=== PATIENT | female | born 1965 | race Caucasian/White ===

== ENCOUNTER 2019-03-13 09:50 | Outpatient (CLI) | payer BC, SELFPAY ==
[2019-03-13 12:29] LABS: TSH (W/Ref FT4) 1.11 uIU/mL (0.36-3.74)
== END 2019-03-13 10:10 ==
PROVIDERS: Visit Provider Nurse Practitioner Family
DX: N95.0 Postmenopausal bleeding (principal)
CPT/HCPCS: 36415; 84443; 87086

== ENCOUNTER 2019-03-13 11:34 | Outpatient (REF) | payer BC, SELFPAY | END 2019-03-13 11:54 | LOC: LBN 11:34 | PROVIDERS: Visit Provider Nurse Practitioner Family | DX: R82.79 Other abnormal findings on microbiological examination of urine (principal) | CPT/HCPCS: 87086 ==

== ENCOUNTER 2019-03-17 00:32 | Outpatient (CLI) | payer BC, MEDICAID, SELFPAY ==
--- NOTE | 2019-03-17 09:34 | DI.US_ITS ---
SYMPTOM/DIAGNOSIS: POST MENOPAUSAL BLEEDING N95.0 PELVIC ULTRASOUND: 03/17 Pelvic ultrasound was performed transabdominally and transvaginally. Please see the accompanying data sheet for measurements of the pelvic structures. There appear to be two anterior uterine fibroids measuring about 26 mm and 22 mm in greatest diameter respectively. The endometrial stripe is homogeneous and about 3 mm in thickness. The right ovary is nonvisualized. The left ovary is unremarkable in appearance. No free fluid identified in the cul de sac. Limited scanning of the kidneys is unremarkable. CONCLUSION: Anterior uterine fibroids are noted. Right ovary nonvisualized. Otherwise unremarkable examination.
== END 2019-03-17 00:52 ==
PROVIDERS: Visit Provider Nurse Practitioner Family
DX: N95.0 Postmenopausal bleeding (principal); D25.9 Leiomyoma of uterus, unspecified
CPT/HCPCS: 76830; 76856

== ENCOUNTER 2019-03-18 15:54 | Outpatient (REF) | payer BC, SELFPAY ==
--- NOTE | 2019-03-18 15:25 | ENDOMET_PTH ---
PATIENT: Berenice Ramirez LOC: [facility] U#:[id number] AGE/SX: 53/F ROOM: RE03/18/[address]: Raheem Quan MD : 1965 BED: DIS: 03/18/2019 SPEC #: [id number] RECD: 03/18/19 17:16 STATUS: YULIANA REQ #: [id number] EVAN: 03/18/19 15:[address]: Raheem Quan DEPT: Surgical Specimen RECD BY: Elissa Sosa ENTERED: 03/18/19 17:16 SP TYPE: Endomet OTHR DR: None Tissues: 1 - ENDOMETRIUM BX/CURRETTE Procedures: GROSS AND MICRO LEVEL 4 Comments: [id number]
== END 2019-03-18 16:14 ==
LOC: LBN 15:54
PROVIDERS: Visit Provider Obstetrics & Gynecology
DX: N85.01 Benign endometrial hyperplasia (principal); N95.0 Postmenopausal bleeding
CPT/HCPCS: 88305

== ENCOUNTER 2020-03-27 07:07 | Emergency (ER) | payer BC, SELFPAY ==
[2020-03-27] VITALS (31 sets, daily range): BP systolic 97–131; BP diastolic 56–98; PULSE 63–91; RESP 12–24; TEMP 36.5–36.6; O2SAT 96–100
--- NOTE | 2020-03-27 07:00 | RT.EKG_ITS ---
APPROVED REPORT Exam: Resting ECG Patient Location: E HR:69 bpm ECG Measurements Heart Rate 69 AXIS RI 162 P 51 QRSd 84 QRS 18 QT 369 T 28 QTc 395 Conclusion Sinus rhythm...normal P axis, V-rate 60- 99 Multiform ventricular premature complexes...short R-R, variable morphology I have reviewed and interpreted ECG and agree with software generated interpretation.
--- NOTE | 2020-03-27 07:10 | ED.GENADUL_ITS ---
Discharge Plan Disposition Patient Disposition: AGAINST MEDICAL ADVICE Condition: Stable Discharge Details Clinical Impression: Chest pain Primary Care Provider: None,None ED Provider: Panchito Mayberry Home Meds and New Rx's Prescriptions: No Action No Known Home Meds RF: 0 Discharge Instructions Instructions: Chest Pain (ED) Additional Instructions: We have placed you on our follow up list to get established with a primary care provider as soon as possible If you have worsening pain, difficulty breathing or feel more ill return to the emergency department Discharge Data Discharge Date/Time-TO BE ENTERED AT DEPARTURE: 03/27/20 09:13 Medical Decision Making <Jose Alberto Claros MD - Last Filed: 03/27/20 20:07> Patient presents to ED with left-sided chest pain described as squeezing in nature. It varies in intensity but has not resolved in the last 4 hours. She has no risk factors for cardiac disease that she is aware of. Pain is not pleuritic nor does she have leg pain or leg swelling. EKG is sinus rhythm with PVCs present but no ST changes. IV established. Aspirin and nitroglycerin ordered. Laboratory studies and chest x-ray to be done. Revised Dunmore score places patient in low risk category. D-dimer ordered and if negative makes PE unlikely. Assuming normal troponin patient HEART score is also low suggesting safe discharge with close follow-up and outpatient stress testing if second troponin also normal. Patient care to be signed out to oncoming physician Dr. Mayberry. ECG Data Attestation: I personally reviewed and interpreted this ECG (s) as follows: Interpretation: See EKG <Panchito Mayberry MD - Last Filed: 03/27/20 09:04> pt's labs and xray unremarkable. She has no pain now and is hd stable, heart score is 3. I recommended she have a delta troponin and if this is negative can be d/c'd and f/u with a pcp. She declines to stay. She has the capacity to make her own decisions and understands risks of leaving including and permanent disability and is willing to accept these risks. She understands she can always return if she changes her mind and will also return if new or worsening symptoms. Will place on f/u list to get established with a pcp as well as she doesn't have one Imaging Data Radiologic Study: Attestation: I personally reviewed and interpreted this imaging study as follows: Imaging: X-Ray Radiologist's impression: no acute findings Lab Data Lab results reviewed: Yes I reviewed the patient's lab results. HPI <Jose Alberto Claros MD - Last Filed: 03/27/20 20:07> General Mode of arrival: ambulatory . Date/Time Provider Initiated Documentation: 03/27/20 07:09 . Limitations to Documentation: no limitations . Information obtained by: patient and RN notes reviewed . HPI Narrative: Patient presents with left upper chest pain for the last 4 hours. Pain does not radiate anywhere. There are no associated symptoms. Describes the pain as squeezing and changes in intensity but has never completely gone away since it started this morning. She had similar episode 2 mornings ago. After about 45 minutes the pain did resolve. Does not seem to be associated with exertion. She denies leg pain or leg swelling. She denies fever or cough. She has no cardiac risk factors, but admits that she has not seen a physician in over 3 or 4 years. Since pain did not resolve this morning she elected to come to ED for evaluation. Related Data Home Medications Medication Instructions Recorded Confirmed Unknown [No Known Home Meds] 07/16/18 03/27/20 Allergies Allergy/AdvReac Type Severity Reaction Status Date / Time Penicillins Allergy Intermediate Hives Verified 03/27/20 07:16 Review of Systems <Jose Alberto Claros MD - Last Filed: 03/27/20 20:07> Narrative: 04/21 Review of Systems completed and is negative except as stated above in HPI (Systems reviewed: Const, Eyes, ENT, Resp, CV, GI, , MSK, Skin, Neuro) PFSH <Jose Alberto Claros MD - Last Filed: 03/27/20 20:07> Medical History Fibroid uterus Surgical History section at time of C/S Colonoscopy - IV Sedation (08/25/16) Ligation of fallopian tube Myomectomy Family History Mother Osteoporosis Other Heart disease Social History Smoking/Tobacco Use Status: Never Alcohol Intake: never Drug use: Never Substance use type: does not use current occupation: [employer] Home History History 3 Para 3 Hx # Term Pregnancies Multiple births Hx # Pregnancies Ectopic pregnancies AB induced Hx Number of Living Children AB spontaneous Exam <Jose Alberto Claros MD - Last Filed: 03/27/20 20:07> Narrative Exam Narrative: Vitals: Afebrile with normal vitals and room air pulse ox. Const: WDWN female in NAD. HEENT: NC/AT. Normal facial exam. Eyes: Normal conjunctiva and sclera. Neck: Supple. Trachea midline. Lungs: Normal respiratory effort. Lungs are clear. Cor: RRR without murmur/gallop. Good radial pulses. GI: Soft. NT/ND. No guarding or rebound. Neuro: A+O x 3. Normal speech, mentation, gait. Cranial nerves II - XII grossly intact. No gross motor or sensory deficit. Ext: No C/C/E. No calf tenderness. Skin: Warm and dry without rash. Sign Out <Jose Alberto Claros MD - Last Filed: 03/27/20 20:07> Sign Out Data: Sign Out Comment: pending labs, CXR and disposition Last updated by Jose Alberto Claros MD at 03/27/20 07:47
--- NOTE | 2020-03-27 07:15 | DI.RAD_ITS ---
EXAM: XR CHEST 2V PA LATERAL CLINICAL HISTORY: CP TECHNIQUE: 2D digital imaging was performed. COMPARISON: No exams were available for comparison FINDINGS: MEDIASTINUM: Normal. HEART: Normal. PULMONARY VASCULATURE: Normal. LUNGS: Clear. PLEURAL SPACE: No pleural effusion or pneumothorax. BONE:Within normal limits for the patient's age. OTHER FINDINGS:Normal. IMPRESSION: No acute pulmonary findings. DATA REPOSITORY: RADIATION DOSE DELIVERED:
[2020-03-27] MEDS: Aspirin 81 MG CHEW 324 MG CH (07:35)
[2020-03-27] MEDS: nitroGLYcerin 0.4 MG TAB SL (07:37)
[2020-03-27 07:41] LABS: Abs Immature Grans 0.02 10^3/uL (0.0-0.06); Absolute Basophil Count 0.02 10^3/uL (0.0-0.2); Absolute Eosinophil Count 0.09 10^3/uL (0.0-0.7); Absolute Lymphocyte Count 1.72 10^3/uL (1.2-3.4); Basophils % 0.3; Eosinophils % 1.5; HCT 40.5 % (36.0-46.0); HGB 12.8 g/dL (11.2-15.7); Immature Grans % 0.3; Lymphocytes % 28.4; MCH 27.4 pg (27.0-33.0); MCHC 31.6 % (32.0-36.0); MCV 86.7 fL (80-95); MPV 9.2 fL (8.0-11.0); Monocytes % 8.3; Neutrophils % 61.2; Nucleated RBC 0 %; Platelet Count 248 10^3/uL (130-400); RBC 4.67 10^6/uL (3.93-5.22); RDW 12.4 % (11.7-14.6); RDW-SD 39.2 fL; WBC 6.05 10^3/uL (4.4-10.8)
--- NOTE | 2020-03-27 08:00 | DI.VRAD_ITS ---
PROCEDURE INFORMATION: Exam: XR Chest, 2 Views Exam date and time: 03/27/2020 7:28 AM Age: 54 years old Clinical indication: Chest pain; Type not specified TECHNIQUE: Imaging protocol: XR of the chest Views: 2 views. COMPARISON: No relevant prior studies available. FINDINGS: Lungs: Unremarkable. No consolidation. Pleural space: Unremarkable. No pleural effusion. No pneumothorax. Heart/Mediastinum: Unremarkable. No cardiomegaly. Bones/joints: Unremarkable. IMPRESSION: No acute findings. Dictated and Authenticated by: Pranav Jennings MD. Ordering:STONE Abrams MD
[2020-03-27 08:21] LABS: D-Dimer 410 ng/mlFEU (<500)
[2020-03-27 08:48] LABS: ALT 32 U/L (14-59); AST 22 U/L (15-37); Albumin 3.7 g/dL (3.4-5.0); Alkaline Phosphatase 82 U/L (46-116); Anion Gap 7.4 mmol/L (3-11); BUN 15 mg/dL (7-18); Bilirubin, Total 0.4 mg/dL (0.2-1.0); CO2 29.6 mmol/L (21.0-32.0); CREATININE 0.82 mg/dL (0.55-1.02); Calcium 9.5 mg/dL (8.5-10.1); Chloride 105 mmol/L (98-107); Glucose 123 mg/dL (74-106); Potassium 4.4 mmol/L (3.5-5.1); Sodium 142 mmol/L (136-145); Total Protein 7.9 g/dL (6.4-8.2)
[2020-03-27 08:49] LABS: Troponin I < 0.05 ng/mL (<0.06)
--- NOTE | 2020-04-02 16:10 | PDOC.ERCMPRO ---
- If Service Date Differs Date of service: 04/02/20 Time of Service: 16:10 Care Management Progress Note At the request of ED provider, BERNICE coordinates referral to Ivonne Sanchez MD, on-call provider, of [facility], to assist Berenice in obtaining a follow-up appointment and in establishing care with a PCP. Berenice was seen in the ED for chest pain. She has [employer] for insurance.
== END 2020-03-27 09:13 | disposition left against medical advice (07) ==
PROVIDERS: Emergency Medicine; Emergency Provider Emergency Medicine
DX: R07.9 Chest pain, unspecified (principal)
CPT/HCPCS: 36415; 80053; 93005; 99285; 71046; 83735; 84484; 85025; 85379; 93010; 99284

== ENCOUNTER 2020-06-29 00:44 | Outpatient (CLI) | payer BC, SELFPAY ==
--- OUTSIDE RECORDS SUMMARY | 2020-06-29 00:46 | XMS_ITS ---
:1965 Author Care Team Providers Name Role Phone Angel Ramos Primary Care Provider Unavailable Allergies Code Code System Name Reaction Severity Status Onset Penicillins Anaphylaxis ? Active ? ? Hives ? Active ? Medications Name Status Start Date Stop Date ? ? Aleve 220 mg capsule Active ? Not availab le Take 2 capsules every day by oral route as needed. Bactrim DS 800 mg-160 mg tablet Completed 07/06/2006 07/21/2006 1 (one) Tablet: BID Benadryl 25 mg capsule Completed 12/30/2007 8 1 (one) Cap: every 6 hours as needed for eye swelling hydrocodone 5 mg-acetaminophen 325 mg tablet Completed 05/04/2017 1-2 Tablet: Every 4 to 6 hours as needed Levaquin 500 mg tablet Completed 01/21/2007 7 1 (one) Tablet: Daily lorazepam 0.5 mg tablet Completed 12/16/2007 12/16/19 08 1 (one) Tablet: at bedtime Macrobid 100 mg capsule Completed 01/20/2008 01/25/20 08 1 Cap: Twice daily Naprosyn 500 mg tablet Completed 04/05/2012 7 1 Tablet: bid - twice daily omeprazole 20 mg capsule,delayed release Active ? Not available 1 (one) Cap DR: Daily for 30 days paroxetine 10 mg tablet Completed 10/14/2007 10/14/19 08 1 (one) Tablet: Daily Tylenol 500 mg capsule Active ? Not avail able Take 2 tablets every 4 hours by oral route as needed. Zithromax TRI-JEFFRY 500 mg Completed 01/11/2007 007 tablet Zithromax Z-Jeffry 250 mg tablet Completed 06/19/2006 1 (one) Tablet: 2 now then 1 daily until gone Problems Name Status Onset Date Source ? Gastroesophageal Reflux Disease Active 02/25/2018 ? Neck Pain Active 02/25/2018 ? Thoracic Back Pain Active 02/25/2018 ? Muscle Pain Active 02/25/2018 ? Paresthesia Active 02/25/2018 ? Hyperglycemia Active 02/25/2018 ? Generalized Anxiety Disorder Active ? His tory Depressive Disorder Active ? History Wrist Joint Pain Active ? History Asthenia Active ? History Tingling of Skin Active ? History Dysuria Active ? History Adult Health Examination Active ? History Specialized Medical Examination Active ? History Finding of Esophagus Unknown ? History Procedure by Method Unknown ? History SNOMED CT Concept Unknown ? History Procedures Date Name Performed by ? ? Tubal Ligation Information not syeda blackman Notes: 1997 ? Delivery Information not syeda blackman Notes: 199702/25/2018 XR, Thoracic Spine, 3 View [facility] Radiology (Internal) [address], [place] [id number] (Work Place) 02/25/2018 XR, Cervical Spine, 4 or 5 View [facility] Radiology (Internal) [address] [place] [id number] (Work Place) 02/25/2018 XR, Wrist, 3 or More View [facility] Radiology (Internal) [address] [place] [id number] (Work Place) Results Lab Results Date Name Specimen Result Interpretation Description Value Range Status Address ? 02/26/2018 Venipuncture ? Location Left ? ? P_nc Primary [place]tecubital [place]: [address] [place], [place] ? ? ? Needle 21g ? ? P_nc Prim latia Vacutainer Care [place]: [address] [place], [place] ? ? ? Number of 1 ? ? P_nc P rimary Attempts Care [place]: [address] [place], [place] ? ? ? Successful Yes ? ? P_nc Primary [place]: [address] [place], [place] ? ? ? Dressing Pressure ? ? P_nc Primary Band-aid Care Applied [place]: [address] [place], [place] ? ? ? Initials rs ? ? P_nc Pr imary Care [place]: [address] [place], [place] 02/25/2018 CBC W/ Auto BLD - Wbc 8.6 10*3/uL 5.0-1 Fin al [place] Diff 0.0 Hospital L ab 10*3/ (Internal) : [address] [place] ? ? BLD - Rbc 4.53 10*6/uL 4.10- Final [facility] 5.30 Hospital L ab 10*6/ (Internal) : [address] ? ? BLD - Hgb 12.6 g/dL 12.0- Final [place] 16.0 Hospital L ab g/dL (Internal) : [address] ? ? BLD - Hct 38.8 % 37.0- Final [facility] 47.0 Hospital L ab % (Internal) : [address] ? ? BLD - Mcv 85.7 fL 80.0- Final [facility] 96.0 Hospital L ab fL (Internal) : [address] ? ? BLD - Mch 27.8 pg 26.0- Final [place] [facility] 32.0 Hospital L ab pg (Internal) : [address] ? ? BLD - Mchc 32.5 g/dL 31.0- Final [facility] 35.0 Hospital L ab g/dL (Internal) : [address] ? ? BLD - Rdw 12.6 % 11.5- Final [facility] 14.5 Hospital L ab % (Internal) : [address] ? ? BLD - Plt 261 10*3/uL 130-4 Final [place] [facility] 50 Hospital L ab 10*3/ (Internal) : [address] ? ? BLD - Anc 5.44 10*3/uL ? Final [facility] Hospital L ab (Internal) : [address] ? ? BLD - Neutro 63.2 % 40.0- [facility] 75.0 Hospital L ab % (Internal) : [address] [place] ? ? BLD - Lymph 27.5 % 20.0- Final [facility] 50.0 Hospital L ab % (Internal) : [address] ? ? BLD - [place] 7.4 % 2.0-1 Final [facility] 0.0 % Hospital L ab (Internal) : [address] [place] ? ? BLD - Eos 1.3 % 1.0-6 Final [place] [facility] .0 % Hospital L ab (Internal) : [address] ? ? BLD - Baso 0.5 % 0.0-1 Final [place] [facility] .0 % Hospital L ab (Internal) : [address] ? ? BLD - Ig 0.1 % 0.0-0 Final [place] [facility] .9 % Hospital L ab (Internal) : [address] 02/25/2018 HbA1C BLD - Ha1C 5.6 % 4.0-6 Final [facility] (Hemoglobin .0 % Hospi james Lab a1C), Blood (Inte rnal): [address] [place] 02/25/2018 CMP, Serum or S - g/r 92 mg/dL 74-10 Jaci l [facility] Plasma 6 Hospital L ab mg/dL (Internal) : [address] [place] ? ? S High Bun 24 mg/dL 7-17 Final [facility] untry mg/dL Hospital L ab (Internal) : [address] [place] ? ? S - Crea 0.70 mg/dL 0.52- [facility] 1.04 Hospital L ab mg/dL (Internal) : [address] [place] ? ? S - Ca 9.8 mg/dL 8.4-1 Final [facility] 0.2 Hospital L ab mg/dL (Internal) : [address] [place] ? ? S - Na 138 mmol/L 137-1 Final [facility] 45 Hospital L ab mmol/ (Internal) : [address] [place] ? ? S - K 4.3 mmol/L 3.5-5 Final [facility] .1 Hospital L ab mmol/ (Internal) : [address] [place] ? ? S - Cl 100 mmol/L 98-10 Final [facility] 7 Hospital L ab mmol/ (Internal) : [address] [place] ? ? S - Tco2 30.0 mmol/L 22.0- [facility] 30.0 Hospital L ab mmol/ (Internal) : [address] [place] ? ? S High Tp 8.7 g/dL 6.3-8 Final [facility] untry .2 Hospital L ab g/dL (Internal) : [address] [place] ? ? S - Alb 4.6 g/dL 3.5-5 Final [place] [facility] .0 Hospital L ab g/dL (Internal) : [address] [place] ? ? S - Tbil 0.4 mg/dL 0.2-1 Final [facility] .3 Hospital L ab mg/dL (Internal) : [address] [place] ? ? S - Alp 72 U/L 50-13 Final [facility] try 6 U/L Hospital L ab (Internal) : [address] [place] ? ? S - Alt (Sgpt) 29 U/L 9-52 Final [facility] U/L Hospital L ab (Internal) : [address] ? ? S - Ast (Sgot) 29 U/L 14-36 Final [facility] U/L Hospital L ab (Internal) : [address] [place] 02/25/2018 Rf BLD - Rf negative < negat [facility] (Rheumatoid 10 [IU]/mL ayleen < H ospital Lab Factor), 10 (Interna l): 189 Serum [IU]/ [address], mL [place] 02/25/2018 TSH, Serum or S - Tsh 1.82 0.47- Final [facility] Plasma u[IU]/mL 4.68 Hospital Lab u[IU] (Internal) : 189 /mL [address] 02/25/2018 Borrelia S - Lyme negative ? Final [facility] [place]i Antibody Hos pital Lab Ab, Qual (Interna l): 189 Immunoassay, Prou ty , Serum [place] 02/25/2018 MADELEINE S - MADELEINE negative negat [facility] (Antinuclear Interpretatio Hospital Lab Antibodies) n (Inte rnal): 189 Screen, [address] , Serum [place] 11/05/2017 BMP, Serum or S ? g/r 91 mg/dL 74-10 Jaci l [facility] Plasma 6 Hospital L ab mg/dL (Internal) : [address] ? ? S ? Bun 9 mg/dL 7-17 Final [facility] ntry mg/dL Hospital L ab (Internal) : [address] ? ? S ? Crea 0.70 mg/dL 0.52- Final [facility] 1.04 Hospital L ab mg/dL (Internal) : [address] [place] ? ? S ? Ca 9.7 mg/dL 8.4-1 Final [facility]unt[facility] 0.2 Hospital L ab mg/dL (Internal) : [address] ? ? S ? Na 141 mmol/L 137-1 Final [facility] 45 Hospital L ab mmol/ (Internal) : [address] ? ? S ? K 4.3 mmol/L 3.5-5 Final [facility] .1 Hospital L ab mmol/ (Internal) : [address] ? ? S ? Cl 102 mmol/L 98-10 Final [facility] 7 Hospital L ab mmol/ (Internal) : [address] ? ? S ? Tco2 30.0 mmol/L 22.0- Final [facility] 30.0 Hospital L ab mmol/ (Internal) : [address] [place] 11/05/2017 CBC W/ Auto BLD ? Wbc 6.5 10*3/uL 5.0-1 Fin al [place] Diff 0.0 Hospital L ab 10*3/ (Internal) : [address] ? ? BLD ? Rbc 4.59 10*6/uL 4.10- Final [facility] 5.30 Hospital L ab 10*6/ (Internal) : [address] ? ? BLD ? Hgb 13.1 g/dL 12.0- Final [facility] 16.0 Hospital L ab g/dL (Internal) : [address] ? ? BLD ? Hct 39.7 % 37.0- Final [place] [facility] 47.0 Hospital L ab % (Internal) : [address] ? ? BLD ? Mcv 86.5 fL 80.0- Final [facility] ntry 96.0 Hospital L ab fL (Internal) : [address] ? ? BLD ? Mch 28.5 pg 26.0- Final [facility] ntry 32.0 Hospital L ab pg (Internal) : [address] ? ? BLD ? Mchc 33.0 g/dL 31.0- Final [facility] 35.0 Hospital L ab g/dL (Internal) : [address] ? ? BLD ? Rdw 12.5 % 11.5- Final [facility] 14.5 Hospital L ab % (Internal) : [address] ? ? BLD ? Plt 223 10*3/uL 130-4 Final [facility] 50 Hospital L ab 10*3/ (Internal) : [address] ? ? BLD ? Anc 4.01 10*3/uL ? Final [facility] Hospital L ab (Internal) : [address] ? ? BLD ? Neutro 61.4 % 40.0- Final [place] [facility] 75.0 Hospital L ab % (Internal) : [address] ? ? BLD ? Lymph 28.7 % 20.0- Final [place] [facility] 50.0 Hospital L ab % (Internal) : [address] ? ? BLD ? [place] 8.0 % 2.0-1 Final [facility] 0.0 % Hospital L ab (Internal) : [address] ? ? BLD ? Eos 1.2 % 1.0-6 Final [facility] .0 % Hospital L ab (Internal) : [address] ? ? BLD ? Baso 0.5 % 0.0-1 Final [facility] .0 % Hospital L ab (Internal) : [address] ? ? BLD ? Ig 0.2 % 0.0-0 Final [facility] .9 % Hospital L ab (Internal) : [address] 11/05/2017 Urinalysis, UR ? UA-color yellow pale Final [facility] Dipstick, yello Hospita l Lab Reflex Micro w (Int ernal): [address] ? ? UR ? UA-appear clear clear Final [facility] Hospital L ab (Internal) : [address] ? ? UR ? UA-spec Grav <=1.005 1.003 Final [place] -1.03 Hospital L ab 5 (Internal) : [address] ? ? UR ? UA-pH 6.0 [pH] 4.6-8 Final [place] [facility] .0 Hospital L ab [pH] (Internal) : [address] ? ? UR ? UA-leuk Est negative negat Final No [facility] ab (Internal) : [address] ? ? UR ? UA-nitrite negative negat Final [facility] ab (Internal) : [address] ? ? UR ? UA-prot negative negat Final [facility] (Internal) : [address] ? ? UR ? UA-gluc negative negat Final [facility] (Internal) : [address] ? ? UR ? UA-ketone negative negat Final [facility] (Internal) : [address] ? ? UR ? UA-urobil normal francois Final [facility] (Internal) : [address] ? ? UR ? UA-bili negative negat Final [facility] (Internal) : [address] ? ? UR ? UA-blood negative negat Final [facility] (Internal) : [address] 07/20/2017 Neutrophil BLD ? Anc-manual 7.70 10*3/uL ? Final [facility] Count, [facility] Absolute (Interna l): 189 (Anc), Blood Prou ty [place] 07/20/2017 Differential, BLD ? Polys 74 % 40-75 Final [facility] Manual, Blood % Hos pital Lab (Internal) : [address] ? ? BLD ? Bands 0 % 0-5 % Final [facility] (Internal) : [address] ? ? BLD Low Lymphs 18 % 20-50 [facility] (Internal) : [address] ? ? BLD ? [place] 5 % 2-10 Final [facility] (Internal) : [address] ? ? BLD ? Eos 2 % 0-6 % Final [facility] (Internal) : [address] ? ? BLD ? Baso 1 % 0-1 % Final [facility] (Internal) : [address] ? ? BLD ? Atyp Lymph 0 % ? Final [facility] Hospital L ab (Internal) : [address] ? ? BLD ? Plts, Est. adequate adequ Final [facility] ate Hospital L ab (Internal) : [address] ? ? BLD ? RBC normal francois Final [place] [facility] Morphology l Hospit al Lab (Internal) : [address] 07/20/2017 CBC W/ Auto BLD High Wbc 10.4 10*3/uL 5.0-1 Fi nal [facility] Diff 0.0 Hospital L ab 10*3/ (Internal) : [address] ? ? BLD ? Rbc 4.43 10*6/uL 4.10- Final [facility] Country 5.30 Hospital L ab 10*6/ (Internal) : [address] ? ? BLD ? Hgb 12.6 g/dL 12.0- Final [facility] ountry 16.0 Hospital L ab g/dL (Internal) : [address] ? ? BLD ? Hct 38.5 % 37.0- Final [place] [facility] 47.0 Hospital L ab % (Internal) : [address] ? ? BLD ? Mcv 86.9 fL 80.0- Final [facility] ntry 96.0 Hospital L ab fL (Internal) : [address] ? ? BLD ? Mch 28.4 pg 26.0- Final [facility] ntry 32.0 Hospital L ab pg (Internal) : [address] [place] ? ? BLD ? Mchc 32.7 g/dL 31.0- Final [facility]unt[facility] 35.0 Hospital L ab g/dL (Internal) : [address] ? ? BLD ? Rdw 12.6 % 11.5- Final [place] [facility] 14.5 Hospital L ab % (Internal) : [address] ? ? BLD ? Plt 293 10*3/uL 130-4 Final [facility] 50 Hospital L ab 10*3/ (Internal) : [address] 07/20/2017 CMP, Serum or S High g/r 112 mg/dL 74-10 Fin al [facility] Plasma 6 Hospital L ab mg/dL (Internal) : [address] ? ? S ? Bun 17 mg/dL 7-17 Final [facility] untry mg/dL Hospital L ab (Internal) : [address] ? ? S ? Crea 0.70 mg/dL 0.52- Final [facility] 1.04 Hospital L ab mg/dL (Internal) : [address] ? ? S ? Ca 9.3 mg/dL 8.4-1 Final [facility] ountry 0.2 Hospital L ab mg/dL (Internal) : [address] ? ? S Low Na 136 mmol/L 137-1 Final [facility] 45 Hospital L ab mmol/ (Internal) : [address] ? ? S ? K 4.1 mmol/L 3.5-5 Final [facility] .1 Hospital L ab mmol/ (Internal) : [address] ? ? S ? Cl 100 mmol/L 98-10 Final [facility] 7 Hospital L ab mmol/ (Internal) : [address] ? ? S ? Tco2 29.0 mmol/L 22.0- Final [facility] 30.0 Hospital L ab mmol/ (Internal) : [address] ? ? S ? Tp 7.7 g/dL 6.3-8 Final [facility] untry .2 Hospital L ab g/dL (Internal) : [address] ? ? S ? Alb 4.1 g/dL 3.5-5 Final [facility] untry .0 Hospital L ab g/dL (Internal) : [address] ? ? S ? Tbil 0.3 mg/dL 0.2-1 Final [facility] .3 Hospital L ab mg/dL (Internal) : [address] ? ? S ? Alp 72 U/L 50-13 Final [facility] try 6 U/L Hospital L ab (Internal) : [address] ? ? S ? Alt (Sgpt) 27 U/L 9-52 Final [facility] U/L Hospital L ab (Internal) : [address] ? ? S ? Ast (Sgot) 29 U/L 14-36 [facility] U/L Hospital L ab (Internal) : [address] 05/04/2017 CBC W/ Auto BLD High Wbc 10.1 10*3/uL 5.0-1 Fi nal [place] Diff 0.0 Hospital L ab 10*3/ (Internal) : [address] [place] ? ? BLD ? Rbc 4.24 10*6/uL 4.10- Final [facility] 5.30 Hospital L ab 10*6/ (Internal) : [address] ? ? BLD ? Hgb 12.1 g/dL 12.0- Final [facility]untry 16.0 Hospital L ab g/dL (Internal) : [address] ? ? BLD Low Hct 36.7 % 37.0- Final [place] [facility] 47.0 Hospital L ab % (Internal) : [address] ? ? BLD ? Mcv 86.6 fL 80.0- Final [facility] ntry 96.0 Hospital L ab fL (Internal) : [address] ? ? BLD ? Mch 28.5 pg 26.0- Final [facility] ntry 32.0 Hospital L ab pg (Internal) : [address] ? ? BLD ? Mchc 33.0 g/dL 31.0- Final [facility] 35.0 Hospital L ab g/dL (Internal) : [address] ? ? BLD ? Rdw 12.9 % 11.5- Final [facility] 14.5 Hospital L ab % (Internal) : [address] ? ? BLD ? Plt 254 10*3/uL 130-4 Final [place] [facility] 50 Hospital L ab 10*3/ (Internal) : [address] ? ? BLD ? Anc 6.59 10*3/uL ? Final [facility] Hospital L ab (Internal) : [address] ? ? BLD ? Neutro 65.5 % 40.0- Final [facility] ntry 75.0 Hospital L ab % (Internal) : [address] ? ? BLD ? Lymph 23.0 % 20.0- Final [place] [facility] 50.0 Hospital L ab % (Internal) : [address] ? ? BLD ? [place] 9.3 % 2.0-1 Final [facility] 0.0 % Hospital L ab (Internal) : [address] ? ? BLD ? Eos 1.5 % 1.0-6 Final [facility] .0 % Hospital L ab (Internal) : [address] ? ? BLD ? Baso 0.5 % 0.0-1 Final [facility] .0 % Hospital L ab (Internal) : [address] ? ? BLD ? Ig 0.2 % 0.0-0 Final [facility] .9 % Hospital L ab (Internal) : [address] 05/04/2017 CMP, Serum or S ? g/r 89 mg/dL 74-10 Jaci l [facility] Plasma 6 Hospital L ab mg/dL (Internal) : [address] ? ? S High Bun 22 mg/dL 7-17 Final [facility] untry mg/dL Hospital L ab (Internal) : [address] ? ? S ? Crea 0.60 mg/dL 0.52- Final [facility] 1.04 Hospital L ab mg/dL (Internal) : [address] ? ? S ? Ca 9.2 mg/dL 8.4-1 Final [facility] ountry 0.2 Hospital L ab mg/dL (Internal) : [address] ? ? S Low Na 135 mmol/L 137-1 Final [facility] 45 Hospital L ab mmol/ (Internal) : [address] ? ? S ? K 3.7 mmol/L 3.5-5 Final [facility] .1 Hospital L ab mmol/ (Internal) : [address] ? ? S ? Cl 98 mmol/L 98-10 Final [facility] 7 Hospital L ab mmol/ (Internal) : [address] ? ? S ? Tco2 27.0 mmol/L 22.0- Final [facility] 30.0 Hospital L ab mmol/ (Internal) : [address] ? ? S ? Tp 7.6 g/dL 6.3-8 Final [facility] untry .2 Hospital L ab g/dL (Internal) : [address] ? ? S ? Alb 4.2 g/dL 3.5-5 Final [place] [facility] .0 Hospital L ab g/dL (Internal) : [address] ? ? S ? Tbil 0.4 mg/dL 0.2-1 Final [facility] .3 Hospital L ab mg/dL (Internal) : [address] ? ? S ? Alp 62 U/L 50-13 Final [facility] try 6 U/L Hospital L ab (Internal) : [address] ? ? S ? Alt (Sgpt) 37 U/L 9-52 Final [facility] U/L Hospital L ab (Internal) : [address] ? ? S ? Ast (Sgot) 24 U/L 14-36 Final [facility] U/L Hospital L ab (Internal) : [address] 05/04/2017 TSH, Serum or S ? Tsh 1.60 0.47- Final [facility] Plasma u[IU]/mL 4.68 Hospital Lab u[IU] (Internal) : 189 /mL [address] Past Encounters 06/20/2019 Gastroesophageal Reflux Disease Elzbieta Ramos, [employer] SALES CONSULTANT: [address] [place] [id number], Ph. Social History Tobacco Smoking Status Never Smoker Vaccine List Vaccine Type influenza, seasonal, injectable 05/15/2007 rubella Td (adult), adsorbed 07/09/1994 Tdap 05/15/2007 Plan of Care Reminders Provider Appointments None ? ? recorded. Lab None ? ? recorded. Referral None ? ? recorded. Procedures None ? ? recorded. Surgeries None ? ? recorded. Imaging None ? ? recorded. Vitals 06/20/2019 04:00PM Acute 20 Weight Blood Pressure 73.48 kg 118/74 mm[Hg] 02/25/2018 03:20PM Acute 30 Height Weight BMI Blood Pressure 154.94 cm 71.21 kg 29.7 kg/m2 108/58 mm[Hg] 09/06/2017 Height Weight Blood Pressure 154.94 cm 72.57 kg 120/74 mm[Hg] 07/20/2017 Height Weight Blood Pressure 154.94 cm 70.31 kg 114/70 mm[Hg] 05/04/2017 Weight Blood Pressure 71.21 kg 128/70 mm[Hg] 09/10/2008 Weight Blood Pressure 58.97 kg 108/56 mm[Hg] 08/20/2008 Height Weight Blood Pressure 154.94 cm 57.61 kg 98/54 mm[Hg] 06/09/2008 Height Weight Blood Pressure 154.94 cm 59.65 kg 100/58 mm[Hg] 12/16/2007 Weight Blood Pressure 59.87 kg 86/50 mm[Hg] 10/14/2007 Weight Blood Pressure 59.87 kg 96/56 mm[Hg] 09/04/2007 Weight Blood Pressure 59.87 kg 92/60 mm[Hg] 08/01/2007 Height Weight Blood Pressure 154.94 cm 58.97 kg 94/60 mm[Hg] 05/15/2007 Height Weight Blood Pressure 154.94 cm 57.61 kg 110/64 mm[Hg] 02/05/2007 Weight Blood Pressure 56.25 kg 104/60 mm[Hg] 01/21/2007 Weight Blood Pressure 58.06 kg 108/60 mm[Hg] 01/08/2007 Weight Blood Pressure 59.87 kg 88/60 mm[Hg] 12/27/2006 Blood Pressure 98/56 mm[Hg] 12/17/2006 Weight Blood Pressure 59.87 kg 90/60 mm[Hg] 07/06/2006 Weight Blood Pressure 60.78 kg 110/70 mm[Hg] 06/19/2006 Weight Blood Pressure 60.33 kg 100/64 mm[Hg] 05/02/2006 Height Weight Blood Pressure 154.94 cm 60.33 kg 110/70 mm[Hg] 03/16/2006 Blood Pressure 100/68 mm[Hg] 03/08/2006 Weight Blood Pressure 60.33 kg 114/72 mm[Hg] 05/02/2005 Height Weight Blood Pressure 154.94 cm 58.97 kg 104/60 mm[Hg] 12/20/2004 Weight Blood Pressure 58.51 kg 96/60 mm[Hg]
--- NOTE | 2020-06-29 13:20 | DI.MAMMO_ITS ---
EXAM: MG MAMMO SCREENING CLINICAL HISTORY: screening,Z12.39 TECHNIQUE: Bilateral full field digital CC and MLO mammographic images were obtained with 3D tomosyn thesis and utilizing computer aided detection (CAD). COMPARISON: Available for comparison. FINDINGS: Masses/Architectural Distortion: None seen. The asymmetric density in the retroareolar region of the left breast is stable. Microcalcifications: No suspicious pleomorphic-type are seen. Skin Thickening/Nipple Retraction: None. IMPRESSION: 1. No significant interval change with no specific features of malignancy noted. 2. Unless there is more urgent need, screening mammography is recommended, as per [place] [employer] [place] [employer] guidelines. BI-RADS Category 1 - Negative Breast Density - Category B - Scattered areas of fibroglandular density A negative radiographic report should not delay biopsy if a dominant or clinically suspicious mass is present. Up to ten percent of cancers are not identified on mammography. A negative report may reinforce clinical impression. Adenosis and dense breasts may obscure an underlying neoplasm. False positive reports average 6 to 10%. Patient will receive a letter notifying them of these results.
== END 2020-06-29 01:04 ==
PROVIDERS: Visit Provider Obstetrics & Gynecology
DX: Z12.31 Encounter for screening mammogram for malignant neoplasm of breast (principal)
CPT/HCPCS: 77063; 77067

== ENCOUNTER 2020-06-29 15:04 | Outpatient (REF) | payer BC, SELFPAY ==
--- NOTE | 2020-06-29 13:30 | PAPFT_PTH ---
PATIENT: Berenice Ramirez LOC: [facility] U#:[id number] AGE/SX: 54/F ROOM: RE06/29/[address]: Sherri Atkins : 1965 BED: DIS: 06/29/2020 SPEC #: [id number] RECD: 06/29/20 18:04 STATUS: YULIANA REAndrew #: [id number] EVAN: 06/29/20 13:[address]: Sherri Atkins DEPT: [facility] Cytology RECD BY: Elissa Sosa ENTERED: 06/29/20 18:04 SP TYPE: PAPFT OT DR: None Tissues: 1 - CX/ENDOCX FOR PAP SMEARS Procedures: PAP THIN PREP/[facility] Screening HPV DNA PROBE Comments: [id number]
== END 2020-06-29 15:24 ==
LOC: LBN 15:04
PROVIDERS: Visit Provider Obstetrics & Gynecology Gynecology
DX: Z12.4 Encounter for screening for malignant neoplasm of cervix (principal); Z11.51 Encounter for screening for human papillomavirus (HPV)
CPT/HCPCS: 88142; 87624

== ENCOUNTER 2021-09-08 03:34 | Outpatient (CLI) | payer BC, SELFPAY ==
--- NOTE | 2021-09-08 07:30 | DI.MAMMO_ITS ---
Exam(s) MAMMO SCREENING EXAM: MAMMO SCREENING CLINICAL HISTORY: screening,Z12.39 TECHNIQUE: Mammograms were interpreted according to the usual protocol including computer analysis w [employer] CAD system, tomosynthesis and C-view imaging. COMPARISON: 2011 through 2019 FINDINGS: The breasts are composed of scattered fibroglandular densities, Breast Density category B. No suspicious masses or suspicious microcalcifications are seen. No skin thickening or abnormal axillary lymph nodes are seen. There has been no significant change from prior exams. IMPRESSION: BI-RADS Category 1, Negative mammogram Yearly screening mammography is recommended. Breast Density - Category B, scattered fibroglandular densities. A negative radiographic report should not delay biopsy if a dominant or clinically suspicious mass is present. Up to ten percent of cancers are not identified on mammography. A negative report may reinforce clinical impression. Adenosis and dense breasts may obscure an underlying neoplasm. False positive reports average 6 to 10%. Patient will receive a letter notifying them of these results.
== END 2021-09-08 03:54 ==
PROVIDERS: Visit Provider Nurse Practitioner Women's Health
DX: Z12.31 Encounter for screening mammogram for malignant neoplasm of breast (principal)
CPT/HCPCS: 77063; 77067

== ENCOUNTER 2022-04-26 14:46 | Outpatient (REF) | payer BC, SELFPAY ==
[2022-04-26 20:00] LABS: Bilirubin Negative (Negative); Blood Negative (Negative); Clarity Turbid (Clear); Glucose Negative (Negative); Ketones Negative (Negative); Leukocyte Esterase Trace (Negative); Nitrite Negative (Negative); Specific Gravity >= 1.030 (1.005-1.025); Urobilinogen 0.2 EU/dL (Up TO 0.2)
[2022-04-26 20:07] LABS: Bacteria Few HPF (Negative); C & S Indicated? Yes; Crystals Many Amorphous HPF (Negative); Epithelial Cells Rare HPF (Negative); Mucus Negative (Negative); RBC Negative HPF (0-2); WBC 0-2 HPF (0-5)
== END 2022-04-26 14:47 | disposition home or self-care (01) ==
LOC: NCHCN 14:46
PROVIDERS: Visit Provider Physician Assistant
DX: R10.9 Unspecified abdominal pain (principal)
CPT/HCPCS: 81003; 81015; 87086

== ENCOUNTER 2022-08-28 08:11 | Day surgery (SDC) | payer BC, SELFPAY ==
[2022-08-28 08:14] VITALS: BP 106/71; PULSE 66; RESP 16; TEMP 36.6; O2SAT 99
[2022-08-28] MEDS: Tropicam./Phenyleph. (1/2.5%) 5 ML BTL OD ×3 (08:46→09:02)
--- NOTE | 2022-08-28 09:01 | W.ANESPRE ---
General Info Date of Service Date Performed: 08/28/22 Height: 5 ft 1 in Weight: 73.4 kg Body Mass Index (BMI): 30.5 Surgical Procedure: Operation Date: 08/28/22 09:55 Proposed Procedure Side Surgeon p Cataract Extraction with IOL Implant Right Chadwick Charles MD Meds Allergies and Home Medications Allergies Allergy/AdvReac Type Severity Reaction Status Date / Time Penicillins Allergy Intermediate Hives Verified 08/28/22 08:37 Home Medication Medication Instructions Recorded Unknown [No Known Home Meds] 08/28/22 Current Visit Medications: Current Medications Generic Name Dose Route Start Last Admin Trade Name Freq PRN Reason Stop Dose Admin Acetaminophen 1,000 mg 08/28/22 06:00 Acetaminophen 500 Mg Tab PO Q4H PRN PRN Miscellaneous Medication 0 ml 08/28/22 06:00 08/28/22 08:52 Tropicam./Phenyleph. (1/2.5%) 5 Ml Btl OD 1 drp DIRECTED KARLY Administration Miscellaneous Medication 0 ml 08/28/22 06:00 Prednisolone 1%, Moxifloxacin 0.5%, Nepafenac 0.1% 5ml Btl OD DIRECTED KARLY Tetracaine HCl 0 ml 08/28/22 06:00 Tetracaine 0.5% 4 Ml Btl OD DIRECTED KARLY PFSH Active Problems Active Problems: Problem Status Onset Code Nuclear age-related cataract, right eye H25.11 Encounter for routine gynecological examination 05/27/15 Z01.419 Postmenopausal Z78.0 Medical History Medical History (Updated 08/27/22 @ 19:00 by Chadwick Charles MD) Anxiety Fibroid uterus LGSIL (low grade squamous intraepithelial dysplasia) Noted on EMBx results 2019. Final path suggested nl result. Post-menopausal bleeding 2019. ES 3mm. EMBx result: weakly prolif endometrium with report of ? LGSIL squamous epithelium. Surgical History Surgical History section at time of C/S Colonoscopy - IV Sedation (08/25/16) Ligation of fallopian tube Myomectomy Tobacco Smoking/Tobacco Use Status: Never Alcohol Alcohol Intake: never Substance Use Substance use: Never Substance use type: does not use Prental History History 3 Para 3 Hx # Term Pregnancies Multiple births Hx # Pregnancies Ectopic pregnancies AB induced Hx Number of Living Children AB spontaneous Vital Signs and Lab Results Vital Signs Most Recent Vital Signs in EMR: Most Recent Vital Signs Temp Pulse Resp BP Pulse Ox 36.6 C 66 16 106/71 99 08/28/22 08:14 08/28/22 08:14 08/28/22 08:14 08/28/22 08:14 08/28/22 08:14 Lab Results Blood Type / Crossmatch: No Data to Display Complete Blood Count: No Data to Display Complete Metabolic Panel: No Data to Display Liver Function Panel: No Data to Display Coagulation Panel: No Data to Display Cardiac Panel: No Data to Display Arterial Blood Gas: No Data to Display Venous Blood Gas: No Data to Display Pancreas Panel: No Data to Display Thyroid Panel: No Data to Display Infectious Disease: No Data to Display Blood Cultures: No Data to Display Toxicology Panel: No Data to Display Imaging and Studies Imaging and Studies Study information below may be from another EMR and interpreted by another provider. Please see original notes in EMR for more complete details. EKG Summary: 03/2020 Conclusion Sinus rhythm...normal P axis, V-rate 60- 99 Multiform ventricular premature complexes...short R-R, variable morphology I have reviewed and interpreted ECG and agree with software generated interpretation Anesthesia Assessment and Plan Anesthesia History Personal History: No History of Anesthesia Complications Family History: No Family History of Anesthesia Complications Exercise Tolerance Exercise Tolerance: Metabolic Equivalents>4 Pertinent Negatives Pertinent Negatives: No Symptoms of GERD Cardiac & Pulmonary Exam Cardiac Exam: Normal S1/S2 Heart Sounds Pulmonary Exam: Clear Bilateral Breath Sounds Implantable Cardiac Device Does patient have a Pacemaker or an ICD?: No Airway Exam Known Difficult Airway: No Mallampati Class: 2 Mouth Opening: Normal (> 3cm) Thyromental Distance: Greater than 3 cm Neck Range of Motion: Full ROM Neck Circumference: Normal Teeth Condition: Normal Dentition ASA Classification ASA Score: ASA 2 Emergency Case?: No NPO Status NPO Status: NPO Clears >2 hours, Solids >8 hours Anesthesia Plan Resuscitation Status: Full Code Anesthesia Technique: MAC Anesthesia Airway Planned: Natural Airway Monitors Used: Standard Monitors Preoperative Comments:: Er visit 2019 for chest pain. Ruled out cardiac. No further episodes per pt. Declines MKO
[2022-08-28 09:12] VITALS: BMI 30.5
[2022-08-28] MEDS: Tetracaine 0.5% 4 ML BTL OD (09:48)
[2022-08-28] MEDS: Lidocaine 1% Pres-Free 5 ML VIAL (09:49)
[2022-08-28] MEDS: Balanced Salt Soln.-PLUS 500 ML BAG (09:50)
[2022-08-28] MEDS: Phenylephrine/Lidocaine (15/10) MG/ML 1 ML VIAL (09:50)
[2022-08-28] MEDS: Lidocaine 2% Jelly 6 ML SYR (09:51)
[2022-08-28] MEDS: Duovisc Viscoelastic System EACH 1 EACH (09:51)
[2022-08-28] MEDS: Povidone-Iodine Ophth 30 ML BTL (09:51)
[2022-08-28 10:11] VITALS: BP 121/71; PULSE 63; RESP 16; TEMP 37; O2SAT 100
--- NOTE | 2022-08-28 10:13 | W.PM.DSUDISC ---
Date of service: 08/28/22 Time of Service: 10:13 Discharge Plan Disposition Patient Disposition: Home Discharge Details Attending Provider: Chadwick Charles Primary Care Provider: Mike Coelho Home Meds and New Rx's Prescriptions: No Action No Known Home Meds Discharge Instructions Stand Alone Forms: Post-op Topical Cataract, Ashok Sheehan (DSU) Discharge Orders Discharge Orders: Discharge Order (Routine); Ordered 08/28/22 Ordered By: Chadwick Charles DS: Diagnosis Discharge Diagnosis (1) Nuclear age-related cataract, right eye: Status: Resolved
--- NOTE | 2022-08-28 10:14 | W.PM.OP ---
Date of service: 08/28/22 Time of Service: 10:14 Operative Note Operative Note DATE OF PROCEDURE: 08/28/22 PRE-OP DIAGNOSIS: Nuclear cataract, right eye POST-OP DIAGNOSIS: same PROCEDURE: Cataract extraction using phacoemulsification with intraocular lens implant, right eye SURGEON: Chadwick Charles ANESTHESIA TYPE: Local By Surgeon and MAC Refer to Anesthesia Record ESTIMATED BLOOD LOSS: 0 PATHOLOGY: none sent COMPLICATIONS: None Patient was transported to: same day Patient's condition: stable Implants: Deandre & Deandre Tecnis Eyhance [id number] Indications: Progressive visual loss due to cataract, right eye Procedure Description: CATARACT SURGERY OPERATIVE REPORT PREOPERATIVE DIAGNOSIS: 1. Nuclear cataract, right eye POSTOPERATIVE DIAGNOSIS: Same OPERATION: 1. Cataract extraction using phacoemulsification with posterior chamber intraocular lens implant, right eye. IOL: IOL Financial Reporting Analyst/Model: Deandre & Deandre Tecnis Eyhance DIB00 IOL Power: + 25.0 diopters IOL Serial Number: [id number] Optic Diameter: 6.0mm Haptic/Overall Diameter: 13.0mm PHACO INFO: [email or web address] Vision System with OZil and Active [employer]uidics Cumulative Dispersed Energy (CDE): 1.72 seconds SURGEON: Chadwick Charles MD, AMY ANESTHESIA: Monitored Anesthesia Care (MAC), with local sub-tenon's anesthetic infiltration COMPLICATIONS: None SPECIMENS: None INDICATIONS FOR PROCEDURE: The patient is a 56-year-old lady with history of diminished visual acuity in her right eye secondary to the development of nuclear cataract. The option of cataract surgery was offered to the patient and she felt she was symptomatic enough that she wished to proceed. Visual acuity measures 20/70 in her right eye secondary to the cataract. PROCEDURE: The correct surgical eye was identified and marked as the right eye and the pupil was dilated in the preoperative area using mydriatics and cycloplegics. The dilated pupil size was 6.0 mm. The patient elected to proceed without oral sedation. The patient was brought to the operating room where cardiopulmonary monitoring was instituted and surgical time-out was performed, confirming the correct operative eye and IOL power. Topical anesthesia was administered and ophthalmic povidone-iodine 5% was instilled into the conjunctival fornices. Lidocaine gel was applied to the cornea and the katrin-ocular area was prepped with Betadine 10% solution and draped in the usual sterile fashion for intraocular surgery, including an aperture drape. A Tegaderm transparent film dressing was cut in half and used to cover the lashes and lid margins. Care was taken to sequester the lashes and lid margins under the Tegaderm dressing. A lid speculum was placed between the lids of the operative eye and the Jorge [employer] operating microscope was maneuvered into position. Chaitanya scissors were then used to make a conjunctival buttonhole approximately 6mm posterior to the limbus in the inferonasal quadrant. Blunt dissection was carried out to expose bare sclera, and a blunt-tipped sub-tenon?s anesthesia cannula was introduced and passed posteriorly along the globe where non-preserved plain lidocaine was injected into posterior sub-Tenon?s space. A sideport knife was used to make a paracentesis port inferotemporally. Intraocular phenylephrine/lidocaine was injected into the anterior chamber. The anterior chamber was filled with viscoelastic. A keratome knife was used to construct a 2-plane near-clear corneal tunnel extending 2.0mm into clear cornea superiortemporally. A flap was raised on the anterior capsule and capsulorhexis forceps were used to complete a continuous curvilinear capsulorhexis of 5.0 mm. Balanced salt solution was then used to perform cortical cleaving hydrodissection and nuclear hydrodelineation until the lens could be freely rotated within the capsular bag. The lens nucleus was then disassembled and removed within the capsular bag and iris plane using phacoemulsification. Residual cortical material was removed using the I/A handpiece. The posterior capsule was carefully polished to remove as much residual lens epithelial cells as safely possible. The capsular bag was then inflated and the anterior chamber deepened with viscoelastic. The lens implant described above was inserted into the capsular bag using the Deandre and Oskar Simplicity pre-loaded injector. A Kuglen hook was used to dial the IOL into position. Residual viscoelastic was then removed first from posterior to the IOL, then from the anterior chamber using the I/A handpiece. The lens implant was noted to center nicely within the capsular bag. The incisions were stromally hydrated, and the anterior chamber was reformed using BSS. Then 0.5cc of moxifloxacin 1.0mg/ml were injected into the capsular bag and anterior chamber. The incisions were checked with a Weck spear and found to be secure. Several drops of ophthalmic povidone-iodine 5% were then applied to the eye followed by two drops of Imprimis combination prednisolone/moxifloxacin/nepafenac solution. The drapes were removed and a clear plastic protective eye shield was placed over the eye. The patient was then returned to [facility] Day Surgery in stable condition.
--- NOTE | 2022-08-28 10:20 | W.ANESPOSTOP ---
Postoperative Evaluation Date, Time and Location Date Performed: 08/28/22 Time Performed: 10:20 Patient Location: Day Surgery Unit Vital Signs Most Recent Imported Vital Signs: Most Recent Vital Signs Temp Pulse Resp BP Pulse Ox 37 C 63 16 121/71 100 08/28/22 10:11 08/28/22 10:11 08/28/22 10:11 08/28/22 10:11 08/28/22 10:11 Pain Score Most Recent Pain Score: Most Recent Pain Score Pain Level 0 08/28/22 10:11 Assessment Mental Status: Awake (Alert & Oriented to Patient Baseline) Airway and Respiratory Function: Patent airway with normal (patient baseline) respiratory exam Cardiovascular Function: Hemodynamically Stable Hydration Status: Adequately Hydrated Nausea & Vomiting: No Nausea or Vomiting Pain: Pt. Denies Any Pain Peripheral Nerve Block: Patient did not receive a nerve block
== END 2022-08-28 10:28 | disposition home or self-care (01) ==
PROVIDERS: PCP Physician Assistant; Visit Provider Ophthalmology
PROC: (CPT 66984; principal; 2022-08-28 09:45)
DX: H25.11 Age-related nuclear cataract, right eye (principal)
CPT/HCPCS: 66984; V2632

== ENCOUNTER 2022-09-19 01:07 | Outpatient (CLI) | payer BC, SELFPAY ==
--- NOTE | 2022-09-19 08:00 | DI.MAMMO_ITS ---
Exam(s) MAMMO SCREENING EXAM: MAMMO SCREENING CLINICAL HISTORY: screening TECHNIQUE: Mammograms were interpreted according to the usual protocol including computer analysis w [employer] CAD system, tomosynthesis and C-view imaging. COMPARISON: 2012 through 2021 FINDINGS: The breasts are composed of scattered fibroglandular densities, Breast Density category B. No suspicious masses or suspicious microcalcifications are seen. No skin thickening or abnormal axillary lymph nodes are seen. There has been no significant change from prior exams. IMPRESSION: BI-RADS Category 1, Negative mammogram Yearly screening mammography is recommended. Breast Density - Category B, scattered fibroglandular densities. A negative radiographic report should not delay biopsy if a dominant or clinically suspicious mass is present. Up to ten percent of cancers are not identified on mammography. A negative report may reinforce clinical impression. Adenosis and dense breasts may obscure an underlying neoplasm. False positive reports average 6 to 10%. Patient will receive a letter notifying them of these results.
== END 2022-09-19 01:27 ==
PROVIDERS: PCP Physician Assistant; Visit Provider Nurse Practitioner Women's Health
DX: Z12.31 Encounter for screening mammogram for malignant neoplasm of breast (principal)
CPT/HCPCS: 77063; 77067

== ENCOUNTER 2022-12-12 05:35 | Emergency (ER) | payer BC, SELFPAY ==
--- NOTE | 2022-12-12 05:30 | RT.EKG_ITS ---
APPROVED REPORT Exam: Resting ECG Reason for Exam: chest tightness Patient Location: E HR:69 bpm ECG Measurements Heart Rate 69 AXIS CA 194 P 70 QRSd 83 QRS 31 QT 377 T 63 QTc 404 Conclusion Sinus rhythm...normal P axis, V-rate 60- 99
[2022-12-12 05:39] VITALS: PULSE 73; RESP 16; O2SAT 99
[2022-12-12 05:41] VITALS: RESP 16
--- NOTE | 2022-12-12 05:45 | DI.RAD_ITS ---
Exam(s) XR CHEST 2V PA LATERAL EXAM: XR CHEST 2V PA LATERAL CLINICAL HISTORY: left chest pain TECHNIQUE: 2D digital imaging was performed of the chest. Two images were obtained. PA and lateral views were obtained. COMPARISON: CR,XR XR CHEST 2V PA LATERAL from 03/27/2020 FINDINGS: MEDIASTINUM: Normal. HEART: Normal. PULMONARY VASCULATURE: Normal. LUNGS: Clear. PLEURAL SPACE: No pleural effusion or pneumothorax. BONE:Within normal limits for the patient's age. OTHER FINDINGS:Normal. IMPRESSION: No acute pulmonary findings. DATA REPOSITORY: RADIATION DOSE DELIVERED:
--- NOTE | 2022-12-12 05:49 | W.ED.GENAD ---
Discharge Plan Discharge Details Chief Complaint: Chest Pain Primary Care Provider: Mike Coelho ED Provider: Chadwick Aguilar Home Meds and New Rx's Prescriptions: No Action No Known Home Meds Medical Decision Making 57-year-old female no history of coronary disease or thromboembolic disease, low risk heart score, PERC negative, presents with left anterior chest pain below her left breast over the last day associate with mild nausea. No vomiting. No shortness of breath no pleuritic component. No exacerbation with movement. Lungs clear bilaterally, hemodynamically stable, no peripheral edema. Must consider atypical ACS versus costochondritis versus pleurisy versus less likely pneumonia or pneumothorax, lower suspicion for PE or aortic pathology. Will obtain screening labs chest x-ray will provide aspirin light fluid and Zofran. EKG normal sinus rhythm normal intervals nonischemic. Disposition pending reassessment and results 7:49 resting comfortable, awaiting second trop and chest xray; patient signed out to Dr. Mayberry HPI General Date/Time Provider Initiated Documentation: 12/12/22 05:36. HPI Narrative: 57-year-old female presents with over 1 day of left anterior chest pain below her left breast intermittent in nature associate with mild nausea. No shortness of breath. Does not worsen with movement or deep breath. No history of coronary disease or thromboembolic disease. Related Data Home Medications Medication Instructions Recorded Confirmed Unknown [No Known Home Meds] 10/12/22 12/12/22 Allergies Allergy/AdvReac Type Severity Reaction Status Date / Time Penicillins Allergy Intermediate Hives Verified 12/12/22 05:42 General Stated Complaint: Chest Pain KUNAL: 3 Review of Systems Narrative: Review of Systems Constitutional: negative Eyes: negative ENT: negative Cardiovascular: Chest pain Respiratory: negative Gastrointestinal: negative : negative Musculoskeletal: negative Skin: negative Neurologic: negative Psych: negative PFSH All Active Problems Encounter for routine gynecological examination (Acute 05/27/15) Postmenopausal (Acute) Pain of right orbit (Acute) Medical History Anxiety Fibroid uterus LGSIL (low grade squamous intraepithelial dysplasia) Noted on EMBx results 2019. Final path suggested nl result. Post-menopausal bleeding 2019. ES 3mm. EMBx result: weakly prolif endometrium with report of ? LGSIL squamous epithelium. 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 Do you feel safe at home: Yes Do you feel safe in your relationship?: Yes Female Reproductive History Menstrual Menopause type: natural History History 3 Para 3 Hx # Term Pregnancies Multiple births Hx # Pregnancies Ectopic pregnancies AB induced Hx Number of Living Children AB spontaneous Exam Narrative Exam Narrative: Physical Examination General: alert, awake, cooperative, resting comfortably, no acute distress HEENT: normocephalic, atraumatic; PERRL, EOM intact, conjunctiva normal; no nasal discharge; moist mucous membranes, oral and pharyngeal mucosa normal, tolerating secretions Neck: supple, trachea midline; full ROM Chest: normal to inspection Respiratory: normal respiratory effort, speaking in full sentences, clear to auscultation, no wheezing, rales or rhonchi Cardiac: regular rate, regular rhythm, S1S2 intact, no murmurs rubs or gallops GI: abdomen soft, non-tender, non-distended; no palpable mass or hepatosplenomegaly Skin: no lesions, rashes or trauma appreciated Neuro: AAOx3, normal speech, moving all extremities Extremities: No peripheral edema Psych: Appropriate mood and affect Course Vital Signs Vital signs: Vital Signs Pulse 73 12/12/22 05:39 Respiratory Rate 16 12/12/22 05:39 Pulse Oximetry 99 12/12/22 05:39 Temperature Source Oral 12/12/22 05:39 Pulse 73 12/12/22 05:39 Respiratory Rate 16 12/12/22 05:41 Respiratory Effort Normal 12/12/22 05:41 Respiratory Depth Normal 12/12/22 05:41 Respiratory Pattern Normal 12/12/22 05:41 Blood Pressure Position Supine 12/12/22 05:39 Pulse Oximetry 99 12/12/22 05:39 Oxygen Delivery Method Room Air 12/12/22 05:39 Oxygen Flow Rate 0 12/12/22 05:39 Pain Level 8 12/12/22 05:41
[2022-12-12] MEDS: Ondansetron 4 MG/2 ML VIAL IVP (05:52)
[2022-12-12] MEDS: Aspirin 81 MG CHEW 324 MG CH (05:52)
[2022-12-12] MEDS: Normal Saline 500 ML 1000 ML IV (05:53)
[2022-12-12 05:57] LABS: Abs Immature Grans 0.02 10^3/uL (0.0-0.06); Absolute Basophil Count 0.03 10^3/uL (0.0-0.2); Absolute Eosinophil Count 0.05 10^3/uL (0.0-0.7); Absolute Lymphocyte Count 1.99 10^3/uL (1.2-3.4); Absolute Monocyte Count 0.57 10^3/uL (0.1-0.8); Absolute Neutrophil Count 5.74 10^3/uL (1.2-6.7); Basophils % 0.4; Eosinophils % 0.6; HCT 40.6 % (36.0-46.0); HGB 13.3 g/dL (11.2-15.7); Immature Grans % 0.2; Lymphocytes % 23.7; MCH 27.8 pg (27.0-33.0); MCHC 32.8 % (32.0-36.0); MCV 85 fL (80-95); MPV 9.1 fL (8.0-11.0); Monocytes % 6.8; Neutrophils % 68.3; Platelet Count 271 10^3/uL (130-400); RBC 4.78 10^6/uL (3.93-5.22); RDW 12.4 % (11.7-14.6)
[2022-12-12 06:21] LABS: Prothrombin Time 9.9 sec (9.3-11.0)
[2022-12-12 06:22] LABS: ALT 27 U/L (14-59); AST 17 U/L (15-37); Albumin 3.8 g/dL (3.4-5.0); Alkaline Phosphatase 80 U/L (46-116); Anion Gap 5.5 mmol/L (3-11); BUN 9 mg/dL (7-18); Bilirubin, Total 0.5 mg/dL (0.2-1.0); CO2 30.5 mmol/L (21.0-32.0); CREATININE 0.8 mg/dL (0.55-1.02); Calcium 9.3 mg/dL (8.5-10.1); Chloride 103 mmol/L (98-107); Estimated GFR 85.89 (mL/min/1.73m2); Glucose 109 mg/dL (74-106); NT-proBNP 73 pg/mL (<300); Potassium 3.9 mmol/L (3.5-5.1); Sodium 139 mmol/L (136-145); Total Protein 8.1 g/dL (6.4-8.2); Troponin I < 50 ng/L (<or=60)
[2022-12-12 07:16] VITALS: BP 123/84; PULSE 57; PULSE 60; RESP 17; RESP 20; O2SAT 98; O2SAT 99
[2022-12-12 07:20] VITALS: PULSE 79; RESP 17; O2SAT 98
[2022-12-12 07:30] VITALS: PULSE 62; RESP 20; O2SAT 99
[2022-12-12] MEDS: Ketorolac 15 MG/ML VIAL IVP (07:50)
--- NOTE | 2022-12-12 08:02 | NUR.NOTE ---
Nursing Note: Assumed care at 0700. Pt reporting no change in her chest pain at that time. Stable vitals. MD Mas made aware. Toradol given and ordered. CXR pending. Repeat trop/ekg due 846.
--- NOTE | 2022-12-12 08:19 | ED.PROG_ITS ---
Date of service: 12/12/22 Time of Service: 08:19 Medical Decision Making I, Rodney Mayberry, took signout on this patient. In summary 57-year-old female presents with left-sided sharp chest pain since last night. Nonexertional and nonpleuritic. Nonreproducible on exam. Signed out to me pending repeat troponin. Reviewed labs and EKG and they are all unremarkable. Chest x-ray unremarkable. Repeat troponin is still unremarkable. Likely represents costochondritis or pleurisy. Educated on taking NSAIDs. She is agreeable with this plan. Has primary care doctor she can follow-up with. Will discharge with return precautions. Medical Records Medical records reviewed: Yes I reviewed the patient's medical records. Imaging Data Radiologic Study: Attestation: I personally reviewed and interpreted this imaging study as follows: Imaging: X-Ray (chest) Radiologist's impression: Chest x-ray unremarkable Lab Data Lab results reviewed: Yes I reviewed the patient's lab results. ECG Data Attestation: I personally reviewed and interpreted this ECG (s) as follows: Interpretation: Normal sinus rhythm with normal rate. Normal [place] interval. Normal axis. No ST or T wave changes. Otherwise unremarkable EKG. Sign Out Sign Out Data: Sign Out Comment: chest pain; pending second trop and chest xray Last updated by Chadwick Aguilar MD at 12/12/22 07:51 Discharge Plan Disposition Patient Disposition: Home Discharge Details Clinical Impression: Chest pain, Pleurisy Primary Care Provider: Miek Coelho ED Provider: Rodney Mayberry Home Meds and New Rx's Prescriptions: No Action No Known Home Meds Discharge Instructions Instructions: Chest Pain (ED), Pleurisy (ED) Additional Instructions: You were seen in the emergency department for chest pain. We performed labs, EKG, and chest x-ray that were all unremarkable. We repeated your testing for your heart and it was still unremarkable. You are likely experiencing pleurisy or costochondritis. The treatment is the same with time and treatment with NSAIDs. Take 600 mg of ibuprofen every 6 hours if you are experiencing any discomfort. Return for any worsening symptoms or shortness of breath. Follow- up with your primary care doctor. Referrals: Mike Coelho [Primary Care Provider] - 1 week
[2022-12-12 08:57] LABS: Troponin I < 50 ng/L (<or=60)
== END 2022-12-12 09:12 | disposition home or self-care (01) ==
PROVIDERS: Emergency Medicine; Emergency Provider Student in an Organized Health Care Education/Training Program; PCP Physician Assistant
DX: R07.9 Chest pain, unspecified (principal); J90 Pleural effusion, not elsewhere classified
CPT/HCPCS: 36415; 80053; 93005; 96361; 96374; 96375; 99284; 71046; 83735; 83880; 84443; 84484; 85025; 85610; 85730; 93010; J1885; J2405

== ENCOUNTER 2023-01-10 08:07 | Outpatient (CLI) | payer BC, SELFPAY ==
[2023-01-10 09:07] LABS: Calculated LDL 155 mg/dL (<100); Cholesterol 229 mg/dL (<200); HDL Cholesterol 60 mg/dL (40-60); Triglyceride 74 mg/dL (<150)
[2023-01-10 11:20] LABS: Hemoglobin A1C 5.7 % (<5.7)
== END 2023-01-10 08:08 | disposition home or self-care (01) ==
PROVIDERS: PCP Physician Assistant; Visit Provider Physician Assistant
DX: Z00.00 Encounter for general adult medical examination without abnormal findings (principal); F32.89 Other specified depressive episodes; Z13.1 Encounter for screening for diabetes mellitus; Z13.220 Encounter for screening for lipoid disorders
CPT/HCPCS: 36415; 80061; 83036

== ENCOUNTER 2023-08-22 13:41 | Outpatient (REF) | payer BC, SELFPAY ==
--- OUTSIDE RECORDS SUMMARY | 2023-08-22 13:44 | XMS_ITS | Continuity of Care Document ---
Author Name Unknown Organization [facility] Address [address] [place] [address] Encounter [facility] Date(s): 04/25/22 - 04/25/22 [facility] [address] [place] [address] [place] Encounter Diagnosis Acute low back pain(Discharge Diagnosis) - 04/25/22 Discharge Disposition: Home or Self Care Attending Physician: Lilli Rubin MD Admitting Physician: Lilli Rubin MD Allergies, Adverse Reactions, Alerts Substance Reaction Severity Status penicillins Unknown Active Functional Status 04/25/22 Family Member Travel History No recent t ravel Recent Travel History No recent travel Other exposure to Infectious Disease Non e Immunizations Given and Recorded Vaccine Date Status Refusal Reason SARS-CoV-2 (COVID-19) mRNA BNT-162b2 vax 08/18/20 Recorded SARS-CoV-2 (COVID-19) mRNA BNT-162b2 vax 07/28/20 Recorded tetanus/diphth/pertuss (Tdap) adult/adol 05/15/07 Recorded influenza virus vaccine, inactivated 05/15/07 Felix rded tetanus-diphth toxoids (Td) adult/adol 07/09/94 Re corded rubella virus vaccine 07/09/00 Recorded Medications cyclobenzaprine 10 mg oral tablet 10 mg = 1 tab, Oral, TID, PRN as needed for spasm, X 10 days, # 30 tab, 0 Refill(s), 05/05/22 2:50:00 EDT, Pharmacy: [facility] [id number], 155, cm, 04/25/22 2:34:00 EDT, Height/Length Dosing, 73.9, kg, 04/25/22 2:34:00 EDT, Weight Dosing Start Date: 04/25/22 Stop Date: 05/05/22 Status: Ordered Mental Status 04/25/22 Eye Opening Response Suzan Spontaneous ly Best Verbal Response Suzan Oriented Best Motor Response [place] Obeys comman ds [place] Coma Score 15 Vital Signs Most recent to oldest [Reference Range]: 1 Temperature Tympanic [36.6-37.9 Deg C] 3 6.3 Deg C *LOW* (04/25/22 2:26 AM) Peripheral Pulse Rate [60-100 bpm] 80 bp m (04/25/22 2:26 AM) Respiratory Rate [12-24 br/min] 18 br/mi n (04/25/22 2:26 AM) Blood Pressure [90-140/60-90 mmHg] 127/7 3mmHg (04/25/22 2:26 AM) Weight Dosing 73.90 kg (04/25/22 2:34 AM) Weight Estimated 73.90 kg (04/25/22 2:26 AM) Height/Length Dosing 155.000 cm (04/25/22 2:34 AM) Height/Length Estimated 155.000 cm (04/25/22 2:26 AM) Social History Social History Type Response Tobacco Never tobacco user T obacco Use:. Sex Female Hospital Discharge Instructions Patient Education 04/25/2022 01:57:36 Acute Back Pain, Adult Acute Back Pain, Adult Acute back pain is sudden and usually short-lived. It is often caused by an injury to the muscles and tissues in the back. The injury may result from: ??? A muscle, tendon, or ligament getting overstretched or torn. Ligaments are tissues that connectbones to each other. Lifting something improperly can cause a back strain. ??? Wear and tear (degeneration) of the spinal disks. Spinal disks are circular tissue that providecushioning between the bones of the spine (vertebrae). ??? Twisting motions, such as while playing sports or doing yard work. ??? A hit to the back. ??? Arthritis. You may have a physical exam, lab tests, and imaging tests to find the cause of your pain. Acute back pain usually goes away with rest and home care. Follow these instructions at home: Managing pain, stiffness, and swelling ??? Take [id number] and prescription medicines only as told by your health care provider. Treatment may include medicines for pain and inflammation that are taken by mouth or applied to the skin, or muscle relaxants. ??? Your health care provider may recommend applying ice during the first 24???48 hours after your pain starts. To do this: ??? Put ice in a plastic bag. ??? Place a towel between your skin and the bag. ??? Leave the ice on for 20 minutes, 2???3 times a day. ??? Remove the ice if your skin turns bright red. This is very important. If you cannot feel pain, heat, or cold, you have a greater risk of damage to the area. ??? If directed, apply heat to the affected area as often as told by your health care provider. Usethe heat source that your health care provider recommends, such as a moist heat pack or a heating pad. ??? Place a towel between your skin and the heat source. ??? Leave the heat on for 20???30 minutes. ??? Remove the heat if your skin turns bright red. This is especially important if you are unable to feel pain, heat, or cold. You have a greater risk of getting burned. Activity ??? Do not stay in bed. Staying in bed for more than 1???2 days can delay your recovery. ??? Sit up and stand up straight. Avoid leaning forward when you sit or hunching over when you stand. ??? If you work at a desk, sit close to it so you do not need to lean over. Keep your chin tucked in. Keep your neck drawn back, and keep your elbows bent at a 90-degree angle (right angle). ??? Sit high and close to the steering wheel when you drive. Add lower back (lumbar) support to your car seat, if needed. ??? Take short walks on even surfaces as soon as you are able. Try to increase the length of time you walk each day. ??? Do not sit, drive, or marketing support coordinator one place for more than 30 minutes at a time. Sitting or standing for long periods of time can put stress on your back. ??? Do not drive or use heavy machinery while taking prescription pain medicine. ??? Use proper lifting techniques. When you bend and lift, use positions that put less stress on your back: ??? Bend your knees. ??? Keep the load close to your body. ??? Avoid twisting. ??? Exercise regularly as told by your health care provider. Exercising helps your back heal fasterand helps prevent back injuries by keeping muscles strong and flexible. ??? Work with a physical therapist to make a safe exercise program, as recommended by your health care provider. Do any exercises as told by your physical therapist. Lifestyle ??? Maintain a healthy weight. Extra weight puts stress on your back and makes it difficult to havegood posture. ??? Avoid activities or situations that make you feel anxious or stressed. Stress and anxiety increase muscle tension and can make back pain worse. Learn ways to manage anxiety and stress, such as through exercise. General instructions ??? Sleep on a firm mattress in a comfortable position. Try lying on your side with your knees slightly bent. If you lie on your back, put a pillow under your knees. ??? Keep your head and neck in a straight line with your spine (neutral position) when using electronic equipment like smartphones or pads. To do this: ??? Raise your smartphone or pad to look at it instead of bending your head or neck to look down. ??? Put the smartphone or pad at the level of your face while looking at the screen. ??? Follow your treatment plan as told by your health care provider. This may include: ??? Cognitive or behavioral therapy. ??? Acupuncture or massage therapy. ??? Meditation or yoga. Contact a health care provider if: ??? You have pain that is not relieved with rest or medicine. ??? You have increasing pain going down into your legs or buttocks. ??? Your pain does not improve after 2 weeks. ??? You have pain at night. ??? You lose weight without trying. ??? You have a fever or chills. ??? You develop nausea or vomiting. ??? You develop abdominal pain. Get help right away if: ??? You develop new bowel or bladder control problems. ??? You have unusual weakness or numbness in your arms or legs. ??? You feel faint. These symptoms may represent a serious problem that is an emergency. Do not wait to see if the symptoms will go away. Get medical help right away. Call your local emergency services (911 in the [place] Do not drive yourself to the hospital. Summary ??? Acute back pain is sudden and usually short-lived. ??? Use proper lifting techniques. When you bend and lift, use positions that put less stress on your back. ??? Take [id number] and prescription medicines only as told by your health care provider, andapply heat or ice as told. This information is not intended to replace advice given to you by your health care provider. Make sure you discuss any questions you have with your health care provider. Document Revised: 09/16/2021 Document Reviewed: 09/16/2021 [employer] Patient Education ?? 2021 [employer] Follow Up Care 04/25/2022 02:26:34 With:Follow up with primary care provider Address: When:1 to 2 weeks
[2023-08-22 16:38] LABS: Hemoglobin A1C 5.6 % (<5.7)
[2023-08-22 17:01] LABS: ALT 27 U/L (14-59); AST 18 U/L (15-37); Albumin 3.8 g/dL (3.4-5.0); Alkaline Phosphatase 77 U/L (46-116); Anion Gap 10.8 mmol/L (3-11); BUN 17 mg/dL (7-18); Bilirubin, Total 0.7 mg/dL (0.2-1.0); CO2 28.2 mmol/L (21.0-32.0); CREATININE 0.7 mg/dL (0.55-1.02); Calcium 9.4 mg/dL (8.5-10.1); Calculated LDL 140 mg/dL (<100); Chloride 106 mmol/L (98-107); Cholesterol 201 mg/dL (<200); Estimated GFR 100.81 (mL/min/1.73m2); Glucose 92 mg/dL (74-106); HDL Cholesterol 55 mg/dL (40-60); Potassium 4.4 mmol/L (3.5-5.1); Sodium 145 mmol/L (136-145); Total Protein 7.4 g/dL (6.4-8.2); Triglyceride 30 mg/dL (<150)
== END 2023-08-22 13:42 | disposition home or self-care (01) ==
LOC: NCHCN 13:41
PROVIDERS: PCP Physician Assistant; Visit Provider Physician Assistant
DX: Z13.1 Encounter for screening for diabetes mellitus (principal)
CPT/HCPCS: 80053; 80061; 83036

== ENCOUNTER 2023-09-18 13:54 | Outpatient (REF) | payer BC, SELFPAY ==
--- NOTE | 2023-09-18 11:30 | PAPFT_PTH ---
PATIENT: Berenice Ramirez LOC: [facility] U#:[id number] AGE/SX: 57/F ROOM: RE09/18/[address]: Elodia Mayberry NP : 1965 BED: DIS: 09/18/2023 SPEC #: [id number] RECD: 09/18/23 18:09 STATUS: YULIANA REAndrew #: [id number] EVAN: 09/18/23 11:[address]: Elodia Mayberry NP DEPT: [facility] Cytology RECD BY: Elissa Sosa ENTERED: 09/18/23 18:10 SP TYPE: PAPFT OTHR DR: Mike Coelho Tissues: 1 - CX/ENDOCX FOR PAP SMEARS Procedures: PAP THIN PREP/[facility] Screening HPV DNA PROBE Comments: [id number]
== END 2023-09-18 13:55 | disposition home or self-care (01) ==
LOC: LBN 13:54
PROVIDERS: PCP Physician Assistant; Visit Provider Nurse Practitioner Women's Health
DX: Z12.4 Encounter for screening for malignant neoplasm of cervix (principal); Z11.51 Encounter for screening for human papillomavirus (HPV)
CPT/HCPCS: 88142; 87624

== ENCOUNTER → 2023-09-24 03:57 | Outpatient (CLI) | payer BC, SELFPAY ==
--- NOTE | 2023-09-24 12:00 | DI.MAMMO_ITS ---
Exam(s) MAMMO SCREENING EXAM: MAMMO SCREENING CLINICAL HISTORY: screening. TECHNIQUE: Bilateral full field digital CC and MLO mammographic images were obtained with 3D tomosyn thesis and utilizing computer aided detection (CAD). COMPARISON: Prior mammograms were reviewed. FINDINGS: There has been no significant change in the appearance and distribution of the fibroglandular tissue. No CAD designations. There are no new spiculated masses nor malignant appearing microcalcification groups. There is no significant architectural distortion nor skin thickening-retraction. IMPRESSION: No radiographic evidence of malignancy. BI-RADS Category 1 - Negative Breast Density - Category B - Scattered areas of fibroglandular density Breast density Category C or D implies that the patient has dense breast tissue. Dense breast tissue can make it harder to find cancer on a mammogram. Dense breast tissue is also associated with an incr eased risk of breast cancer. This information about the result of the mammogram report was provided to the patient to raise their awareness. Use this report when you speak with the patient about their risks for breast cancer, which includes their family history. At that time, you may recommend additional screening tests (Ultrasoun d or MRI) as these tests may add significant information. A negative radiographic report should not delay biopsy if a dominant or clinically suspicious mass is present. Up to ten percent of cancers are not identified on mammography. A negative report may reinforce clinical impression. Adenosis and dense breasts may obscure an underlying neoplasm. False positive reports average 6 to 10%. Patient will receive a letter notifying them of these results.
== END ==
PROVIDERS: PCP Physician Assistant; Visit Provider Nurse Practitioner Women's Health
DX: Z12.31 Encounter for screening mammogram for malignant neoplasm of breast (principal)
CPT/HCPCS: 77063; 77067

== ENCOUNTER 2024-09-01 08:02 | Outpatient (REF) | payer BC, SELFPAY ==
[2024-09-01 16:08] LABS: ALT 36 U/L (14-59); AST 20 U/L (15-37); Albumin 3.8 g/dL (3.4-5.0); Alkaline Phosphatase 87 U/L (46-116); Anion Gap 4.9 mmol/L (3-11); BUN 15 mg/dL (7-18); CO2 32.1 mmol/L (21.0-32.0); CREATININE 0.7 mg/dL (0.55-1.02); Calcium 9.5 mg/dL (8.5-10.1); Calculated LDL 139 mg/dL (<100); Chloride 107 mmol/L (98-107); Cholesterol 209 mg/dL (<200); Estimated GFR 100.19 (mL/min/1.73m2); Glucose 91 mg/dL (74-106); HDL Cholesterol 53 mg/dL (40-60); Potassium 4.2 mmol/L (3.5-5.1); Sodium 144 mmol/L (136-145); Total Protein 7.4 g/dL (6.4-8.2); Triglyceride 88 mg/dL (<150)
[2024-09-01 19:29] LABS: Hemoglobin A1C 5.7 % (<5.7)
== END 2024-09-01 08:03 | disposition home or self-care (01) ==
LOC: NCHCN 08:02
PROVIDERS: PCP Physician Assistant; Visit Provider Physician Assistant
DX: R73.03 Prediabetes (principal); E78.5 Hyperlipidemia, unspecified
CPT/HCPCS: 80053; 80061; 83036

== ENCOUNTER 2024-10-13 02:05 | Outpatient (CLI) | payer BC, SELFPAY ==
--- NOTE | 2024-10-13 12:33 | DI.MAMMO_ITS ---
Exam(s) MAMMO SCREENING EXAM: MAMMO SCREENING CLINICAL HISTORY: Screening, Z12.31 TECHNIQUE: Mammograms were interpreted according to the usual protocol including computer analysis w [employer] CAD system, tomosynthesis and C-view imaging. COMPARISON: 2015 through 2023 FINDINGS: The breasts are composed of scattered fibroglandular densities, Breast Density category B. No suspicious masses or suspicious microcalcifications are seen. No skin thickening or abnormal axillary lymph nodes are seen. There has been no significant change from prior exams. IMPRESSION: BI-RADS Category 1, Negative mammogram Yearly screening mammography is recommended. Breast Density - Category B, scattered fibroglandular densities. A negative radiographic report should not delay biopsy if a dominant or clinically suspicious mass is present. Up to ten percent of cancers are not identified on mammography. A negative report may reinforce clinical impression. Adenosis and dense breasts may obscure an underlying neoplasm. False positive reports average 6 to 10%. Patient will receive a letter notifying them of these results.
== END 2024-10-13 02:25 ==
LOC: DI 02:05
PROVIDERS: PCP Physician Assistant; Visit Provider Physician Assistant
DX: Z12.31 Encounter for screening mammogram for malignant neoplasm of breast (principal); R92.323 Mammographic fibroglandular density, bilateral breasts
CPT/HCPCS: 77063; 77067